=== PATIENT | female | born 1985 | race Caucasian/White ===

== ENCOUNTER → 2018-09-07 11:25 | Outpatient (CLI) | payer OTHER, SELFPAY ==
[2016-01-01 11:01] VITALS: BMI 36.8
[2018-09-07 17:42] LABS: hCG Titer Quant., Serum 2680 mIU/mL (<9 non-preg)
== END ==
PROVIDERS: Family Provider Family Medicine; PCP Family Medicine; Visit Provider Obstetrics & Gynecology
DX: O20.0 Threatened abortion (principal); Z3A.00 Weeks of gestation of pregnancy not specified
CPT/HCPCS: 36415; 84702

== ENCOUNTER → 2018-09-09 09:50 | Outpatient (CLI) | payer OTHER, SELFPAY ==
[2018-09-09 12:40] LABS: hCG Titer Quant., Serum 2865 mIU/mL (<9 non-preg)
== END ==
PROVIDERS: Visit Provider Obstetrics & Gynecology
DX: O20.0 Threatened abortion (principal); Z3A.00 Weeks of gestation of pregnancy not specified
CPT/HCPCS: 36415; 84702

== ENCOUNTER → 2018-09-11 11:14 | Outpatient (CLI) | payer OTHER, SELFPAY ==
[2016-01-01 11:01] VITALS: BMI 36.8
[2018-09-11 15:46] LABS: hCG Titer Quant., Serum 2790 mIU/mL (<9 non-preg)
== END ==
PROVIDERS: Visit Provider Obstetrics & Gynecology
DX: O20.0 Threatened abortion (principal); Z3A.00 Weeks of gestation of pregnancy not specified
CPT/HCPCS: 36415; 84702

== ENCOUNTER → 2018-09-16 15:29 | Outpatient (CLI) | payer OTHER, SELFPAY ==
[2016-01-01 11:01] VITALS: BMI 36.8
[2018-09-16 18:20] LABS: hCG Titer Quant., Serum 3204 mIU/mL (<9 non-preg)
== END ==
PROVIDERS: Visit Provider Obstetrics & Gynecology
DX: O20.0 Threatened abortion (principal); Z3A.00 Weeks of gestation of pregnancy not specified
CPT/HCPCS: 36415; 84702

== ENCOUNTER → 2018-09-17 14:53 | Outpatient (CLI) | payer OTHER, SELFPAY ==
[2016-01-01 11:01] VITALS: BMI 36.8
[2018-09-17 15:50] LABS: Hematocrit 39.1 % (37-47); Hemoglobin 12.9 g/dl (12.0-15.0); Mean Corpuscular Hgb 31.7 pg (27.0-32.0); Mean Corpuscular Volume 96.1 fL (81-99); Mean Platelet Vol. 11.6 fl (6.2-12.0); Platelet Count 231 K/mm3 (150-450); RBC Distribution Width CV 12.2 % (11.6-14.6); RBC Distribution Width SD 41.6 fl (35.1-43.9); Red Blood Count 4.07 M/mm3 (4.2-5.4); White Blood Count 7.5 K/mm3 (4.4-11.0)
[2018-09-17 15:51] LABS: Scan Indicated on CBC? Y/N NO
[2018-09-17 16:37] LABS: AST(SGOT) 15 U/L (15-37); Alanine Aminotransfer ALT/SGPT 24 U/L (13-56); Creatinine, Serum 0.62 mg/dL (0.55-1.02); EST Glomerular Filtration Rate 119 mL/min (>60); Est Glom Filt Rate - Afr Amer 144 mL/min (>60)
[2018-09-17 16:57] LABS: hCG Titer Quant., Serum 3150 mIU/mL (<9 non-preg)
== END ==
LOC: WOBLAB 14:55
PROVIDERS: Visit Provider Obstetrics & Gynecology
DX: O00.90 Unspecified ectopic pregnancy without intrauterine pregnancy (principal)
CPT/HCPCS: 36415; 82565; 84450; 84460; 84702; 85027; 86850; 86900

== ENCOUNTER → 2018-09-20 13:53 | Outpatient (CLI) | payer OTHER, SELFPAY ==
[2018-09-20 15:13] LABS: hCG Titer Quant., Serum 2668 mIU/mL (<9 non-preg)
== END ==
PROVIDERS: Visit Provider Obstetrics & Gynecology
DX: O00.90 Unspecified ectopic pregnancy without intrauterine pregnancy (principal)
CPT/HCPCS: 36415; 84702

== ENCOUNTER → 2018-09-23 15:02 | Outpatient (CLI) | payer OTHER, SELFPAY ==
[2016-01-01 11:01] VITALS: BMI 36.8
[2018-09-23 15:58] LABS: Hemoglobin 11.7 g/dl (12.0-15.0); Mean Corp Hgb Conc 32.5 g/gl (32-36); Mean Corpuscular Hgb 31.6 pg (27.0-32.0); Mean Corpuscular Volume 97.3 fL (81-99); Mean Platelet Vol. 11.4 fl (6.2-12.0); Platelet Count 220 K/mm3 (150-450); RBC Distribution Width CV 12.3 % (11.6-14.6); RBC Distribution Width SD 41.6 fl (35.1-43.9); White Blood Count 4.9 K/mm3 (4.4-11.0)
[2018-09-23 16:03] LABS: Scan Indicated on CBC? Y/N NO
[2018-09-23 16:11] LABS: Alanine Aminotransfer ALT/SGPT 24 U/L (13-56); Creatinine, Serum 0.59 mg/dL (0.55-1.02); EST Glomerular Filtration Rate 125 mL/min (>60); Est Glom Filt Rate - Afr Amer 151 mL/min (>60)
[2018-09-23 16:21] LABS: hCG Titer Quant., Serum 189 mIU/mL (<9 non-preg)
== END ==
LOC: WOBLAB 15:03
PROVIDERS: Visit Provider Obstetrics & Gynecology
DX: O00.90 Unspecified ectopic pregnancy without intrauterine pregnancy (principal)
CPT/HCPCS: 36415; 82565; 84460; 84702; 85027

== ENCOUNTER → 2018-09-30 15:10 | Outpatient (CLI) | payer OTHER, SELFPAY ==
[2016-01-01 11:01] VITALS: BMI 36.8
[2018-09-30 16:25] LABS: hCG Titer Quant., Serum 10 mIU/mL (<9 non-preg)
== END ==
PROVIDERS: Visit Provider Obstetrics & Gynecology
DX: O20.0 Threatened abortion (principal); Z3A.00 Weeks of gestation of pregnancy not specified
CPT/HCPCS: 36415; 84702

== ENCOUNTER → 2018-10-07 15:15 | Outpatient (CLI) | payer OTHER, SELFPAY ==
[2016-01-01 11:01] VITALS: BMI 36.8
[2018-10-07 16:23] LABS: hCG Titer Quant., Serum 2 mIU/mL (<9 non-preg)
== END ==
PROVIDERS: Visit Provider Obstetrics & Gynecology
DX: O00.90 Unspecified ectopic pregnancy without intrauterine pregnancy (principal)
CPT/HCPCS: 36415; 84702

== ENCOUNTER → 2020-02-10 | Outpatient (CLI) | payer OTHER, SELFPAY ==
[2020-02-15 15:28] LABS: HPV Reflexed? NOT INDICATED
== END | disposition home or self-care (01) ==
PROVIDERS: Visit Provider Obstetrics & Gynecology
DX: Z12.4 Encounter for screening for malignant neoplasm of cervix (principal)
CPT/HCPCS: 88175; G0145

== ENCOUNTER → 2020-04-06 | Outpatient (CLI) | payer OTHER, SELFPAY ==
[2016-01-01 11:01] VITALS: BMI 36.8
== END | disposition home or self-care (01) ==
LOC: LABSPEC 17:06
PROVIDERS: Referring Provider Family Medicine; Visit Provider Family Medicine
DX: Z03.818 Encounter for observation for suspected exposure to other biological agents ruled out (principal)
CPT/HCPCS: 87635; U0003

== ENCOUNTER → 2020-04-20 15:00 | Outpatient (CLI) | payer OTHER, SELFPAY ==
[2016-01-01 11:01] VITALS: BMI 36.8
== END ==
PROVIDERS: Referring Provider Family Medicine; Visit Provider Family Medicine
DX: Z03.818 Encounter for observation for suspected exposure to other biological agents ruled out (principal)
CPT/HCPCS: 87635; U0003

== ENCOUNTER → 2020-05-01 13:00 | Outpatient (CLI) | payer OTHER, SELFPAY ==
[2016-01-01 11:01] VITALS: BMI 36.8
== END | disposition home or self-care (01) ==
PROVIDERS: Visit Provider Family Medicine
CPT/HCPCS: 87635; U0003

== ENCOUNTER → 2020-05-04 | Outpatient (CLI) | payer OTHER, SELFPAY ==
[2016-01-01 11:01] VITALS: BMI 36.8
== END | disposition home or self-care (01) ==
LOC: LABSPEC 12:10
PROVIDERS: Referring Provider Family Medicine; Visit Provider Family Medicine
DX: Z03.818 Encounter for observation for suspected exposure to other biological agents ruled out (principal)
CPT/HCPCS: 87635; U0003

== ENCOUNTER → 2020-05-18 | Outpatient (CLI) | payer OTHER, SELFPAY ==
[2016-01-01 11:01] VITALS: BMI 36.8
== END | disposition home or self-care (01) ==
LOC: LABSPEC 10:47
PROVIDERS: Referring Provider Family Medicine; Visit Provider Family Medicine
DX: Z03.818 Encounter for observation for suspected exposure to other biological agents ruled out (principal)
CPT/HCPCS: 87635; U0003

== ENCOUNTER → 2020-06-01 | Outpatient (CLI) | payer OTHER, SELFPAY ==
[2016-01-01 11:01] VITALS: BMI 36.8
== END | disposition home or self-care (01) ==
LOC: LABSPEC 12:14
PROVIDERS: Referring Provider Family Medicine; Visit Provider Family Medicine
DX: Z03.818 Encounter for observation for suspected exposure to other biological agents ruled out (principal)
CPT/HCPCS: 87635; U0003